=== PATIENT | male | born 1930 | race Caucasian/White ===

== ENCOUNTER 2017-02-20 12:20 | Day surgery (SDC) | payer MEDICARE, BC ==
[~2017-02-20 12:20] MED LIST: ASPI81TA52 PO; GLIP5TAB13 PO; HYDR25TA4 PO; LISI40TA4 PO; METO100T14 PO; SIMV40TA4 PO
[2017-02-20 12:51] LABS: BASOPHILS % (AUTO) 0.4 % (0-1); EOSINOPHILS # (AUTO) 0.3 X10'3 (0-0.9); EOSINOPHILS % (AUTO) 4.6 % (0-6); HEMATOCRIT 46.8 % (42.0-52.0); HEMOGLOBIN 15.9 g/dl (14.0-17.9); LYMPHOCYTES # (AUTO) 1.6 X10'3 (1.1-4.8); LYMPHOCYTES % (AUTO) 22.5 % (21-51); MEAN CORPUSCULAR HEMOGLOBIN 32.3 PG (27.0-31.0); MEAN CORPUSCULAR HGB CONC 33.9 % (33.0-36.5); MEAN CORPUSCULAR VOLUME 95.2 FL (78-98); MEAN PLATELET VOLUME 8.7 FL (7.4-10.4); MONOCYTES # (AUTO) 0.7 X10'3 (0-0.9); MONOCYTES % (AUTO) 10.3 % (2-12); NEUTROPHILS # (AUTO) 4.4 X10'3 (1.8-7.7); NEUTROPHILS % (AUTO) 62.2 % (42-75); PLATELET COUNT 202 X10'3 (140-440); RED BLOOD COUNT 4.91 X10'6 (4.70-6.10); RED CELL DISTRIBUTION WIDTH 12.6 % (11.5-14.5); WHITE BLOOD COUNT 7.1 X10'3 (4.5-11.0)
[2017-02-20 12:59] LABS: ANION GAP 7 (8-16); BLOOD UREA NITROGEN 19 MG/DL (7-18); BUN/CREATININE RATIO 15.7 (5.4-32.0); CALCIUM 9.1 MG/DL (8.5-10.1); CHLORIDE 102 MMOL/L (99-107); CREATININE 1.21 MG/DL (0.60-1.10); GLUCOSE 133 MG/DL (70-104); POTASSIUM 4.5 MMOL/L (3.5-5.1); SODIUM 140 MMOL/L (135-145); TOTAL CARBON DIOXIDE 30.8 MMOL/L (24-32); eGFR 57 ML/MIN
[2017-02-20 13:00] LABS: ALBUMIN 3.7 G/DL (3.4-5.0)
[2017-02-20 13:01] LABS: PARTIAL THROMBOPLASTIN TIME 25 SECONDS (22-32); PROTHROMBIN TIME 10.4 SECONDS (9.0-12.0)
== END 2017-02-20 23:59 | disposition home or self-care (01) ==
LOC: SSTAY O 12:20
PROVIDERS: ATTEND Internal Medicine Interventional Cardiology
DX: I35.0 Nonrheumatic aortic (valve) stenosis (principal); Z53.9 Procedure and treatment not carried out, unspecified reason; I10 Essential (primary) hypertension; E78.5 Hyperlipidemia, unspecified; I44.0 Atrioventricular block, first degree; Z79.01 Long term (current) use of anticoagulants
CPT/HCPCS: 36415; 80048; 85025; 85610; 85730

== ENCOUNTER 2017-02-22 12:07 | Emergency (ER) | payer MEDICARE, BC ==
[~2017-02-22] VITALS: Ht 177.8 cm; Wt 113.0 kg
[2017-02-22] MEDS ORDERED: bacitracin 15gm ointment TP ONE (12:25)
[2017-02-22] MEDS ORDERED: ceFAZolin 1gm IM kit IM ONE (12:25)
[2017-02-22] MEDS ORDERED: LIDOcaine 1% 30ml vial IJ ONE (12:25)
[2017-02-22] MEDS ORDERED: CEPH250T PO (15:18)
[2017-02-22 19:37] VITALS: BP 168/82
== END 2017-02-22 19:39 | disposition home or self-care (01) ==
LOC: ER 12:08
DX: S61.411A Laceration without foreign body of right hand, initial encounter (principal); I10 Essential (primary) hypertension; E78.00 Pure hypercholesterolemia, unspecified; Z79.82 Long term (current) use of aspirin; W31.2XXA Contact with powered woodworking and forming machines, initial encounter; Y93.89 Activity, other specified; Y92.89 Other specified places as the place of occurrence of the external cause; Y99.8 Other external cause status
CPT/HCPCS: 12002; 73130; 99284; A6255; A6449; J0690; J3490; 29125

== ENCOUNTER 2017-02-26 10:00 | Outpatient (CLI) | payer MEDICARE, BC ==
[~2017-02-26 10:00] MED LIST changes: +CEPH250T PO
[2017-02-26] MEDS ORDERED: LIDOcaine 2% 5ml jelly ONE (10:32)
[2017-02-26] MEDS ORDERED: METF500T PO (10:38)
[2017-02-26] MEDS ORDERED: mupirocin 2% ointment 22GM ONE (11:17)
== END 2017-02-26 11:44 | disposition home or self-care (01) ==
LOC: WOUND CARE 10:00
PROVIDERS: ATTEND Surgery
DX: L98.491 Non-pressure chronic ulcer of skin of other sites limited to breakdown of skin (principal); I10 Essential (primary) hypertension; E78.00 Pure hypercholesterolemia, unspecified; Z79.82 Long term (current) use of aspirin
CPT/HCPCS: 36416; 82948; 99215; A6021; A6206; A6222

== ENCOUNTER 2017-03-03 12:03 | Day surgery (SDC) | payer MEDICARE, BC ==
[2017-03-03] VITALS (9 sets, daily range): BP systolic 113–139; BP diastolic 61–77
[~2017-03-03] VITALS: Ht 177.8 cm; Wt 109.8 kg
[~2017-03-03 12:03] MED LIST changes: -GLIP5TAB13 PO; +METF500T PO
[2017-03-03] MEDS ORDERED: diphenhydrAMINE 25mg capsule PO PRN (13:00)
[2017-03-03] MEDS ORDERED: normal saline 1000ml 1,000 ML IV SCH ×2 (13:00→15:35)
[2017-03-03] MEDS ORDERED: LORazepam 0.5 MG tablet PO PRN (13:00)
[2017-03-03] MEDS ORDERED: CEPH250C PO (13:53)
[2017-03-03] MEDS ORDERED: fentaNYL/PF 50MCG/1 ML 2ML syringe ONE (14:09)
[2017-03-03] MEDS ORDERED: LIDOcaine 1%/PF (10mg/ml) 5ml vial ONE (14:09)
[2017-03-03] MEDS ORDERED: midazolam 2 mg/2 ml injection ONE (14:09)
[2017-03-03] MEDS ORDERED: iohexol 350MG/ML 100ml bottle IV ONE (14:09)
[2017-03-03] MEDS ORDERED: FLU VACC QS2017-18 36MOS UP/PF 60 MCG/0.5 ML SYRINGE IMVAC ONE (14:35)
[2017-03-03] MEDS ORDERED: pneumococcal 23-VAL P-sac vacc 25 mcg/0.5ml vial IMVAC ONE (14:35)
[2017-03-03] MEDS ORDERED: OXAZEpam 15mg capsule PO PRN (15:35)
[2017-03-03] MEDS ORDERED: proCHLORperazine 10 MG/2 ml inj IV PRN (15:35)
[2017-03-03] MEDS ORDERED: ondansetron/PF 4mg/2ml inj IV PRN (15:35)
[2017-03-03] MEDS ORDERED: HYDROcodone/acetaminophen 10/325mg tab PO PRN (15:35)
[2017-03-03] MEDS ORDERED: HYDROcodone/acetaminophen 5mg/325mg tablet PO PRN (15:35)
== END 2017-03-03 18:15 | disposition home or self-care (01) ==
LOC: SSTAY O 12:03
PROVIDERS: ATTEND Internal Medicine Interventional Cardiology
DX: I25.10 Atherosclerotic heart disease of native coronary artery without angina pectoris (principal); I35.0 Nonrheumatic aortic (valve) stenosis; I10 Essential (primary) hypertension; E11.9 Type 2 diabetes mellitus without complications; Z79.82 Long term (current) use of aspirin; Z79.899 Other long term (current) drug therapy
CPT/HCPCS: 93005; 93456; A6257; C1760; C1769; J1644; J2001; J2250; J3010; J7030; Q2037; Q9967; 99152; 99153; A4620

== ENCOUNTER 2017-03-05 10:12 | Day surgery (SDC) | payer MEDICARE, BC ==
[~2017-03-05 10:12] MED LIST changes: +CEPH250C PO; -CEPH250T PO
[2017-03-05] MEDS ORDERED: LIDOcaine 2% 5ml jelly ONE ×2 (11:52→12:06)
[2017-03-05] MEDS ORDERED: mupirocin 2% ointment 22GM ONE (12:37)
== END 2017-03-05 13:07 | disposition home or self-care (01) ==
LOC: WOUND CARE 10:12
PROVIDERS: ATTEND Surgery
DX: S61.401D Unspecified open wound of right hand, subsequent encounter (principal); I25.10 Atherosclerotic heart disease of native coronary artery without angina pectoris; I10 Essential (primary) hypertension; E78.00 Pure hypercholesterolemia, unspecified; X58.XXXD Exposure to other specified factors, subsequent encounter
CPT/HCPCS: 11042; A6209; A6222

== ENCOUNTER 2017-03-12 09:42 | Day surgery (SDC) | payer MEDICARE, BC ==
[2017-03-12] MEDS ORDERED: LIDOcaine 2% 5ml jelly ONE (10:24)
== END 2017-03-12 11:10 | disposition home or self-care (01) ==
LOC: WOUND CARE 09:42
PROVIDERS: ATTEND Surgery
DX: E11.622 Type 2 diabetes mellitus with other skin ulcer (principal); L98.491 Non-pressure chronic ulcer of skin of other sites limited to breakdown of skin; I25.10 Atherosclerotic heart disease of native coronary artery without angina pectoris; I10 Essential (primary) hypertension; E78.00 Pure hypercholesterolemia, unspecified; Z79.82 Long term (current) use of aspirin; Z79.899 Other long term (current) drug therapy
CPT/HCPCS: 15275; A6209; A6222; Q4132

== ENCOUNTER 2017-03-19 09:41 | Day surgery (SDC) | payer MEDICARE, BC ==
[2017-03-19] MEDS ORDERED: LIDOcaine 2% 5ml jelly ONE (10:16)
== END 2017-03-19 11:35 | disposition home or self-care (01) ==
LOC: WOUND CARE 09:41
PROVIDERS: ATTEND Surgery
DX: E11.622 Type 2 diabetes mellitus with other skin ulcer (principal); L98.491 Non-pressure chronic ulcer of skin of other sites limited to breakdown of skin; I25.10 Atherosclerotic heart disease of native coronary artery without angina pectoris; I10 Essential (primary) hypertension; E78.00 Pure hypercholesterolemia, unspecified; Z79.82 Long term (current) use of aspirin; Z79.899 Other long term (current) drug therapy
CPT/HCPCS: 15275; A6021; A6206; A6209; A6222; Q4132

== ENCOUNTER 2017-03-26 09:45 | Day surgery (SDC) | payer MEDICARE, BC ==
[2017-03-26] MEDS ORDERED: LIDOcaine 2% 5ml jelly ONE (10:08)
== END 2017-03-26 11:23 | disposition home or self-care (01) ==
LOC: WOUND CARE 09:45
PROVIDERS: ATTEND Surgery
DX: E11.622 Type 2 diabetes mellitus with other skin ulcer (principal); L98.491 Non-pressure chronic ulcer of skin of other sites limited to breakdown of skin; I25.10 Atherosclerotic heart disease of native coronary artery without angina pectoris; I10 Essential (primary) hypertension; E78.00 Pure hypercholesterolemia, unspecified; Z79.82 Long term (current) use of aspirin; Z79.899 Other long term (current) drug therapy
CPT/HCPCS: 97597; A6021; A6209; A6222; A6446

== ENCOUNTER 2017-04-02 11:18 | Day surgery (SDC) | payer MEDICARE, BC ==
[2017-04-02] MEDS ORDERED: LIDOcaine 2% 5ml jelly ONE (12:05)
== END 2017-04-02 12:45 | disposition home or self-care (01) ==
LOC: WOUND CARE 11:18
PROVIDERS: ATTEND Surgery
DX: E11.622 Type 2 diabetes mellitus with other skin ulcer (principal); L98.491 Non-pressure chronic ulcer of skin of other sites limited to breakdown of skin; I25.10 Atherosclerotic heart disease of native coronary artery without angina pectoris; I10 Essential (primary) hypertension; E78.00 Pure hypercholesterolemia, unspecified; Z79.82 Long term (current) use of aspirin; Z79.899 Other long term (current) drug therapy
CPT/HCPCS: 17250; 97597; A6021; A6222

== ENCOUNTER 2017-04-09 09:53 | Outpatient (CLI) | payer MEDICARE, BC | END 2017-04-09 10:48 | disposition home or self-care (01) | LOC: WOUND CARE 09:53 → EDSTATUS 10:00 → WOUND CARE 10:48 | PROVIDERS: ATTEND Surgery | DX: E11.622 Type 2 diabetes mellitus with other skin ulcer (principal); L98.491 Non-pressure chronic ulcer of skin of other sites limited to breakdown of skin; I25.10 Atherosclerotic heart disease of native coronary artery without angina pectoris; I10 Essential (primary) hypertension; E78.00 Pure hypercholesterolemia, unspecified; Z79.82 Long term (current) use of aspirin; Z79.899 Other long term (current) drug therapy; Z79.01 Long term (current) use of anticoagulants | CPT/HCPCS: 99215; A6222 ==

== ENCOUNTER 2017-04-16 09:50 | Day surgery (SDC) | payer MEDICARE, BC ==
[2017-04-16] MEDS ORDERED: LIDOcaine 2% 5ml jelly ONE (10:37)
== END 2017-04-16 11:15 | disposition home or self-care (01) ==
LOC: WOUND CARE 09:50
PROVIDERS: ATTEND Surgery
DX: E11.622 Type 2 diabetes mellitus with other skin ulcer (principal); L98.491 Non-pressure chronic ulcer of skin of other sites limited to breakdown of skin; I25.10 Atherosclerotic heart disease of native coronary artery without angina pectoris; I10 Essential (primary) hypertension; E78.00 Pure hypercholesterolemia, unspecified; Z79.82 Long term (current) use of aspirin; Z79.899 Other long term (current) drug therapy; Z79.01 Long term (current) use of anticoagulants
CPT/HCPCS: 15275; A6209; A6222; Q4131; A6250

== ENCOUNTER 2017-04-24 09:09 | Outpatient (CLI) | payer MEDICARE, BC | END 2017-04-24 10:10 | disposition home or self-care (01) | LOC: WOUND CARE 09:09 → EDSTATUS 09:30 → WOUND CARE 10:10 | PROVIDERS: ATTEND Surgery | DX: E11.622 Type 2 diabetes mellitus with other skin ulcer (principal); L98.491 Non-pressure chronic ulcer of skin of other sites limited to breakdown of skin; I25.10 Atherosclerotic heart disease of native coronary artery without angina pectoris; I10 Essential (primary) hypertension; E78.00 Pure hypercholesterolemia, unspecified; Z79.82 Long term (current) use of aspirin; Z79.899 Other long term (current) drug therapy; Z79.01 Long term (current) use of anticoagulants | CPT/HCPCS: 99211; A6212 ==

== ENCOUNTER 2017-04-30 09:12 | Outpatient (CLI) | payer MEDICARE, BC | END 2017-04-30 10:24 | disposition home or self-care (01) | LOC: WOUND CARE 09:12 → EDSTATUS 09:30 → WOUND CARE 10:24 | PROVIDERS: ATTEND Surgery | DX: E11.622 Type 2 diabetes mellitus with other skin ulcer (principal); L98.491 Non-pressure chronic ulcer of skin of other sites limited to breakdown of skin; S61.200D Unspecified open wound of right index finger without damage to nail, subsequent encounter; I25.10 Atherosclerotic heart disease of native coronary artery without angina pectoris; I10 Essential (primary) hypertension; E78.00 Pure hypercholesterolemia, unspecified; Z79.82 Long term (current) use of aspirin; Z79.899 Other long term (current) drug therapy; Z79.01 Long term (current) use of anticoagulants; X58.XXXD Exposure to other specified factors, subsequent encounter | CPT/HCPCS: 99214 ==

== ENCOUNTER 2017-05-14 09:21 | Outpatient (CLI) | payer MEDICARE, BC | END 2017-05-14 10:50 | disposition home or self-care (01) | LOC: WOUND CARE 09:21 → EDSTATUS 09:30 → WOUND CARE 10:50 | PROVIDERS: ATTEND Surgery | DX: E11.622 Type 2 diabetes mellitus with other skin ulcer (principal); L98.491 Non-pressure chronic ulcer of skin of other sites limited to breakdown of skin; I25.10 Atherosclerotic heart disease of native coronary artery without angina pectoris; I10 Essential (primary) hypertension; E78.00 Pure hypercholesterolemia, unspecified; Z79.82 Long term (current) use of aspirin; Z79.899 Other long term (current) drug therapy; Z79.01 Long term (current) use of anticoagulants | CPT/HCPCS: 99214 ==

== ENCOUNTER 2017-06-18 12:30 | Inpatient (IN) | payer MEDICARE, BC ==
[~2017-06-18] VITALS: Ht 177.8 cm; Wt 118.0 kg
[~2017-06-18 12:30] MED LIST changes: -CEPH250C PO
[2017-06-18 13:08] LABS: BASOPHILS # (AUTO) 0.1 X10'3 (0-0.2); BASOPHILS % (AUTO) 1.1 % (0-1); EOSINOPHILS # (AUTO) 0.4 X10'3 (0-0.9); EOSINOPHILS % (AUTO) 5.8 % (0-6); LYMPHOCYTES # (AUTO) 1.4 X10'3 (1.1-4.8); LYMPHOCYTES % (AUTO) 19.9 % (21-51); MEAN CORPUSCULAR HEMOGLOBIN 32.5 PG (27.0-31.0); MEAN CORPUSCULAR HGB CONC 34.9 % (33.0-36.5); MEAN PLATELET VOLUME 8.8 FL (7.4-10.4); MONOCYTES # (AUTO) 0.6 X10'3 (0-0.9); MONOCYTES % (AUTO) 9.1 % (2-12); NEUTROPHILS # (AUTO) 4.5 X10'3 (1.8-7.7); NEUTROPHILS % (AUTO) 64.1 % (42-75); PRE OP HEMATOCRIT 44.2 % (42.0-52.0); PRE OP HEMOGLOBIN 15.4 g/dL (14.0-17.9); PRE OP PLATELET COUNT 210 X10'3 (140-440); RED BLOOD COUNT 4.75 X10'6 (4.70-6.10); RED CELL DISTRIBUTION WIDTH 13.5 % (11.5-14.5)
[2017-06-18 13:12] LABS: CLARITY,URINE CLEAR (Clear); COLOR,URINE YELLOW (Yellow); GLUCOSE, URINE NEGATIVE (Neg); KETONES,URINE NEGATIVE (Neg); LEUKOCYTE ESTERASE ,URINE NEGATIVE (Neg); NITRITES, URINE NEGATIVE (Neg); OCCULT BLOOD,URINE NEGATIVE (Neg); PROTEIN,URINE NEGATIVE (Neg)
[2017-06-18 13:21] LABS: UA COLLECTION TYPE CLN CATCH MIDSTREAM
[2017-06-18 13:29] LABS: ALBUMIN 3.6 G/DL (3.4-5.0); ALKALINE PHOSPHATASE 57 IU/L (46-116); BLOOD UREA NITROGEN 20 MG/DL (7-18); BUN/CREATININE RATIO 16.1 (5.4-32.0); CALCIUM 9.1 MG/DL (8.5-10.1); CHLORIDE 104 MMOL/L (99-107); CREATININE 1.24 MG/DL (0.60-1.10); PRE OP ALT 30 U/L (30-65); PRE OP ANION GAP 7 (8-16); PRE OP BILIRUB, TOTAL 0.5 MG/DL (0.0-1.0); PRE OP SODIUM 140 MMOL/L (135-145); TOTAL CARBON DIOXIDE 28.9 MMOL/L (24-32); TOTAL PROTEIN 7.2 G/DL (6.4-8.2); eGFR 55 ML/MIN
[2017-06-18 13:30] LABS: PRE OP AST 24 U/L (10-37); PRE OP GLUCOSE 144 MG/DL (70-104); PRE OP POTASSIUM 4.6 MMOL/L (3.4-5.1)
[2017-06-18 14:10] LABS: ABG BASE EXCESS 3.9 mmol/L (-2.0-3.0); ABG HCO3 27.7 mmol/L (22.0-26.0); ABG PCO2 (T) 38.6 mmHg (35.0-48.0); ABG PH (T) 7.473 (7.350-7.450); ABG PO2 (T) 86.9 mmHg (83-108); ALLEN'S TEST Positive; FMetHb 0.1 % (0.3-1.12); FO2Hb 95.9 % (94-100); TOTAL HEMOGLOBIN 15.5 G/dl (14.0-18.0)
[2017-06-22] VITALS (19 sets, daily range): BP systolic 98–180; BP diastolic 42–88
[2017-06-22] MEDS ORDERED: ringers solution, lacted 1,000 ML IV SCH (05:00)
[2017-06-22] MEDS ORDERED: dextrose 50%-water 50ml dispensing syringe IV PRN ×2 (05:30→11:35)
[2017-06-22] MEDS ORDERED: famotidine 20mg tablet PO ONE (05:30)
[2017-06-22] MEDS ORDERED: LORazepam 2 mg/ml vial IV ONE (05:30)
[2017-06-22] MEDS ORDERED: ceFAZolin inj. 2,000 MG in normal saline 100ml IV soln 100 ML IV ONE (05:30)
[2017-06-22] MEDS ORDERED: metoprolol tartrate 12.5mg (1/2 tablet) PO ONE (05:30)
[2017-06-22] MEDS: insulin regular, human 100 UNITS in normal saline 100ml IV soln 99 ML IV SCH ×18 (05:30→23:15)
[2017-06-22] MEDS ORDERED: DOCUMENT DATE & TIME OF BETA-BLOCKER PO ONE (05:30)
[2017-06-22] MEDS ORDERED: vancomycin inj 1,500 MG in normal saline 300ml IV soln IV ONE (05:30)
[2017-06-22] MEDS ORDERED: LIDOcaine 1% (10mg/ml) 2ml vial ONE (05:56)
[2017-06-22] MEDS: mupirocin 2% ointment 22GM TP SCH ×2 (06:16→08:00)
[2017-06-22] MEDS ORDERED: heparin 10,000 units/1 ML INJ IR ONE (06:30)
[2017-06-22] MEDS ORDERED: papaverine 30 mg/ml 2ml inj. IA ONE (06:30)
[2017-06-22] MEDS ORDERED: MIDAZolam 1mg/ml 10ml vial ONE (07:07)
[2017-06-22] MEDS ORDERED: LIDOcaine 2% (20mg/ml) 5ml vial ONE (07:08)
[2017-06-22] MEDS ORDERED: propofol inj 20 ML IV ONE (07:08)
[2017-06-22] MEDS ORDERED: pancuronium br 1mg/ml inj IV ONE (07:08)
[2017-06-22] MEDS ORDERED: SUFENTANIL CITRATE 50 MCG/ML 2ml ampule IV ONE (07:08)
[2017-06-22] MEDS ORDERED: sevoflurane 250ml liquid IH ONE (07:15)
[2017-06-22] MEDS ORDERED: aminocaproic acid 250 MG/1 ML inj. ONE (07:15)
[2017-06-22] MEDS ORDERED: protamine sulf. 10mg/ml inj. IV ONE (07:15)
[2017-06-22] MEDS ORDERED: albumin (Human) 5% 250ml 250 ML IV ONE (07:21)
[2017-06-22] MEDS ORDERED: BRIM5DRO16 EACHEYE (07:46)
[2017-06-22 08:16] LABS: ABG BASE EXCESS -1.7 mmol/L (-2.0-3.0); ABG HCO3 23.9 mmol/L (22.0-26.0); ABG OXYGEN SATURATION 99.3 % (95-98); ABG PCO2 43.5 mmHg (35.0-45.0); ABG PH 7.357 (7.350-7.450); ABG PO2 243.4 mmHg (60.0-100.0); CL (ABG) 105 mmol/L (99-107); FCOHb 0.5 % (0.5-1.5); FMetHb 0.2 % (0.3-1.12); FO2Hb 98.6 % (94-100); GLUCOSE (ABG) 145 mg/dl (70-105); K (ABG) 4.1 mmol/L (3.3-5.1); NA (ABG) 133 mmol/L (135-145)
[2017-06-22 08:40] LABS: ACT @ 1.70 U 295 SEC (193-297); ACT @ 2.84 U 427 SEC (260-420); BASELINE ACT 148 SEC (101-148)
[2017-06-22 09:16] LABS: ABG HCO3 25.6 mmol/L (22.0-26.0); ABG OXYGEN SATURATION 99.4 % (95-98); ABG PCO2 40.5 mmHg (35.0-45.0); ABG PH 7.418 (7.350-7.450); ABG PO2 272.7 mmHg (60.0-100.0); CL (ABG) 103 mmol/L (99-107); FCOHb 0.4 % (0.5-1.5); FMetHb 0.3 % (0.3-1.12); FO2Hb 98.7 % (94-100); GLUCOSE (ABG) 121 mg/dl (70-105); K (ABG) 5.1 mmol/L (3.3-5.1); NA (ABG) 132 mmol/L (135-145); TOTAL HEMOGLOBIN 10.9 G/dl (14.0-18.0)
[2017-06-22 09:35] LABS: ABG BASE EXCESS VENOUS -0.8 mmol/L; ABG HCO3 VENOUS 24.7 mmol/L; ABG PCO2 VENOUS 44.2 mmHg; ABG PO2 VENOUS 52.7 mmHg; CL (ABG) 103 mmol/L (99-107); FCOHb VENOUS 0.8 %; FHHb VENOUS 13.6 %; FMetHb VENOUS 0.3 %; FO2Hb VENOUS 85.3 %; GLUCOSE (ABG) 120 mg/dl (70-105); IONIZED CA (ABG) 1.06 mmol/L (1.03-1.32); NA (ABG) 133 mmol/L (135-145); TOTAL HEMOGLOBIN 11.4 G/dl (14.0-18.0)
[2017-06-22 10:15] LABS: ABG HCO3 27.4 mmol/L (22.0-26.0); ABG OXYGEN SATURATION 98.9 % (95-98); ABG PCO2 41.6 mmHg (35.0-45.0); ABG PH 7.437 (7.350-7.450); ABG PO2 327.8 mmHg (60.0-100.0); CL (ABG) 103 mmol/L (99-107); FCOHb 0.3 % (0.5-1.5); FMetHb 0.6 % (0.3-1.12); GLUCOSE (ABG) 127 mg/dl (70-105); IONIZED CA (ABG) 1.21 mmol/L (1.03-1.32); K (ABG) 4.3 mmol/L (3.3-5.1); NA (ABG) 132 mmol/L (135-145); TOTAL HEMOGLOBIN 10.5 G/dl (14.0-18.0)
[2017-06-22 11:11] LABS: ABG BASE EXCESS VENOUS 0.3 mmol/L; ABG HCO3 VENOUS 26.3 mmol/L; ABG PO2 VENOUS 42.3 mmHg; CL (ABG) 105 mmol/L (99-107); FCOHb VENOUS 0.7 %; FHHb VENOUS 22.3 %; FMetHb VENOUS 0.4 %; FO2Hb VENOUS 76.6 %; GLUCOSE (ABG) 123 mg/dl (70-105); IONIZED CA (ABG) 1.17 mmol/L (1.03-1.32); K (ABG) 4.3 mmol/L (3.3-5.1); NA (ABG) 134 mmol/L (135-145); TOTAL HEMOGLOBIN 13.1 G/dl (14.0-18.0)
[2017-06-22 11:26] LABS: ACTIVATED CLOTTING TIME 133 SEC (101-148)
[2017-06-22] MEDS ORDERED: nitroGLYCERIN-Tridil 50MG/D5W 250 ML IV PRN (11:31)
[2017-06-22] MEDS: sodium chloride 0.45% 1,000 ML IV SCH (11:31)
[2017-06-22] MEDS ORDERED: DOPamine 400mg/D5W 250ml 250 ML IV PRN (11:31)
[2017-06-22] MEDS ORDERED: niCARDipine/sod cl 20mg/200ml 200 ML IV PRN (11:31)
[2017-06-22] MEDS ORDERED: potassium Cl 20mEq/100mL bag 100 ML IV PRN ×2 (11:35)
[2017-06-22] MEDS ORDERED: insulin regular, human inj. 100 UNITS in normal saline 100ml IV soln 100 ML IV SCH ×2 (11:35)
[2017-06-22] MEDS ORDERED: acetaminophen 325mg tablet PO PRN (11:35)
[2017-06-22] MEDS ORDERED: magnesium hydroxide 30ml (MOM) UD suspension PO PRN (11:35)
[2017-06-22] MEDS ORDERED: magnesium 2GM in 50ml NS 50 ML IV PRN (11:35)
[2017-06-22] MEDS ORDERED: morphine 4 MG/ML inj SYRINge IV PRN (11:35)
[2017-06-22] MEDS ORDERED: normal saline 250ml IV soln 250 ML IV PRN (11:35)
[2017-06-22] MEDS ORDERED: Neutra Phos packet PO PRN (11:35)
[2017-06-22] MEDS ORDERED: sodium phosphate inj. 30 MMOL in dextrose 5%-water 250 ML IV PRN (11:35)
[2017-06-22] MEDS ORDERED: HYDROcodone/acetaminophen 10/325mg tab PO PRN (11:35)
[2017-06-22] MEDS ORDERED: sodium phosphate inj. 15 MMOL in dextrose 5%-water 150 ML IV PRN (11:35)
[2017-06-22] MEDS ORDERED: ondansetron/PF 4mg/2ml inj IV PRN (11:35)
[2017-06-22] MEDS ORDERED: metoclopramide 5 mg/ml inj IV PRN (11:35)
[2017-06-22] MEDS ORDERED: magnesium 4gm in 100ml NS 100 ML IV PRN (11:35)
[2017-06-22 12:14] LABS: BASOPHILS % (AUTO) 0.2 % (0-1); EOSINOPHILS # (AUTO) 0.1 X10'3 (0-0.9); EOSINOPHILS % (AUTO) 1.6 % (0-6); HEMATOCRIT 34.7 % (42.0-52.0); HEMOGLOBIN 11.9 g/dl (14.0-17.9); LYMPHOCYTES # (AUTO) 0.7 X10'3 (1.1-4.8); LYMPHOCYTES % (AUTO) 9.9 % (21-51); MEAN CORPUSCULAR HEMOGLOBIN 32.1 PG (27.0-31.0); MEAN CORPUSCULAR HGB CONC 34.3 % (33.0-36.5); MEAN CORPUSCULAR VOLUME 93.7 FL (78-98); MEAN PLATELET VOLUME 8.7 FL (7.4-10.4); MONOCYTES # (AUTO) 0.3 X10'3 (0-0.9); MONOCYTES % (AUTO) 4.5 % (2-12); NEUTROPHILS # (AUTO) 6.4 X10'3 (1.8-7.7); NEUTROPHILS % (AUTO) 83.8 % (42-75); PLATELET COUNT 112 X10'3 (140-440); RED BLOOD COUNT 3.71 X10'6 (4.70-6.10); RED CELL DISTRIBUTION WIDTH 13.4 % (11.5-14.5); WHITE BLOOD COUNT 7.6 X10'3 (4.5-11.0)
[2017-06-22 12:16] LABS: ABG BASE EXCESS -1.3 mmol/L (-2.0-3.0); ABG HCO3 24.7 mmol/L (22.0-26.0); ABG OXYGEN SATURATION 96.1 % (95-98); ABG PCO2 (T) 43.8 mmHg (35.0-48.0); ABG PH (T) 7.363 (7.350-7.450); ABG PO2 (T) 82.6 mmHg (83-108); FCOHb 0.3 % (0.5-1.5); FLOW 35 L/min; FMetHb 0.1 % (0.3-1.12); FO2Hb 95.7 % (94-100); MINUTE VOLUME 8 L/min; PATIENT TEMPERATURE 35.9; PEEP 5 cm H2O; RESPIRATORY RATE 10 b/min; RESPIRATORY RATE (OBSERVED) 10 b/min; TIDAL VOLUME 700 mL; TOTAL HEMOGLOBIN 12.8 G/dl (14.0-18.0)
[2017-06-22 12:31] LABS: INR 1.2 INR; PARTIAL THROMBOPLASTIN TIME 39 SECONDS (22-32); PROTHROMBIN TIME 12.4 SECONDS (9.0-12.0)
[2017-06-22 12:35] LABS: ALANINE AMINOTRANSFERASE 19 U/L (12-78); ALBUMIN 3.1 G/DL (3.4-5.0); ALBUMIN/GLOBULIN RATIO 1.7 (1.1-1.5); ALKALINE PHOSPHATASE 28 IU/L (46-116); ANION GAP 10 (8-16); ASPARTATE AMINO TRANSFERASE 27 U/L (10-37); BILIRUBIN,TOTAL 0.5 MG/DL (0.1-1.0); BLOOD UREA NITROGEN 20 MG/DL (7-18); BUN/CREATININE RATIO 17.9 (5.4-32.0); CHLORIDE 107 MMOL/L (99-107); CREATININE 1.12 MG/DL (0.60-1.10); GLUCOSE 113 MG/DL (70-104); MAGNESIUM 3.1 MG/DL (1.5-2.4); POTASSIUM 4.4 MMOL/L (3.5-5.1); SODIUM 142 MMOL/L (135-145); TOTAL PROTEIN 4.9 G/DL (6.4-8.2); eGFR 62 ML/MIN
[2017-06-22] MEDS: albumin (Human) 5% 250ml 250 ML IV PRN ×3 (12:48→16:57)
[2017-06-22] MEDS: insulin Lispro (HumaLOG) vial - multi-dose SQ SCH ×2 (13:00→18:00)
[2017-06-22] MEDS: morphine 4 MG/ML inj SYRINge IV PRN (13:22)
[2017-06-22] MEDS: ceFAZolin inj. 2,000 MG in normal saline 100ml IV soln 100 ML IV SCH ×2 (15:52→23:57)
[2017-06-22] MEDS ORDERED: cefazolin/dext.iso 2gm/50ml 50 ML IV SCH (16:00)
[2017-06-22 16:30] LABS: ABG BASE EXCESS -4.9 mmol/L (-2.0-3.0); ABG HCO3 20.9 mmol/L (22.0-26.0); ABG PCO2 (T) 41.2 mmHg (35.0-48.0); ABG PH (T) 7.322 (7.350-7.450); ABG PO2 (T) 97.5 mmHg (83-108); FCOHb 0.3 % (0.5-1.5); FMetHb 0.3 % (0.3-1.12); FO2Hb 96.4 % (94-100); MINUTE VOLUME 10 L/min; PATIENT TEMPERATURE 36.7; PEEP 5 cm H2O; TIDAL VOLUME 703 mL; TOTAL HEMOGLOBIN 11.8 G/dl (14.0-18.0)
[2017-06-22] MEDS ORDERED: NORepinephrine 8mg/ 250ml NS 250 ML IV ONE (16:42)
[2017-06-22 17:49] LABS: BASOPHILS % (AUTO) 0 % (0-1); EOSINOPHILS # (AUTO) 0.2 X10'3 (0-0.9); EOSINOPHILS % (AUTO) 1.7 % (0-6); HEMATOCRIT 31.6 % (42.0-52.0); HEMOGLOBIN 10.7 g/dl (14.0-17.9); LYMPHOCYTES # (AUTO) 0.5 X10'3 (1.1-4.8); LYMPHOCYTES % (AUTO) 4.4 % (21-51); MEAN CORPUSCULAR HGB CONC 33.9 % (33.0-36.5); MEAN CORPUSCULAR VOLUME 94.4 FL (78-98); MEAN PLATELET VOLUME 8.6 FL (7.4-10.4); MONOCYTES # (AUTO) 0.4 X10'3 (0-0.9); MONOCYTES % (AUTO) 2.8 % (2-12); NEUTROPHILS # (AUTO) 11.5 X10'3 (1.8-7.7); NEUTROPHILS % (AUTO) 91.1 % (42-75); PLATELET COUNT 130 X10'3 (140-440); RED BLOOD COUNT 3.35 X10'6 (4.70-6.10); RED CELL DISTRIBUTION WIDTH 13.6 % (11.5-14.5); WHITE BLOOD COUNT 12.6 X10'3 (4.5-11.0)
[2017-06-22 18:03] LABS: ALANINE AMINOTRANSFERASE 16 U/L (12-78); ALBUMIN 3.8 G/DL (3.4-5.0); ALBUMIN/GLOBULIN RATIO 2.4 (1.1-1.5); ALKALINE PHOSPHATASE 26 IU/L (46-116); ANION GAP 15 (8-16); ASPARTATE AMINO TRANSFERASE 30 U/L (10-37); BILIRUBIN,TOTAL 0.6 MG/DL (0.1-1.0); BLOOD UREA NITROGEN 21 MG/DL (7-18); BUN/CREATININE RATIO 15.6 (5.4-32.0); CALCIUM 7.7 MG/DL (8.5-10.1); CHLORIDE 105 MMOL/L (99-107); CREATININE 1.35 MG/DL (0.60-1.10); GLUCOSE 190 MG/DL (70-104); SODIUM 141 MMOL/L (135-145); TOTAL CARBON DIOXIDE 21.3 MMOL/L (24-32); TOTAL PROTEIN 5.4 G/DL (6.4-8.2); eGFR 50 ML/MIN
[2017-06-22] MEDS: potassium Cl 20mEq/100mL bag 100 ML IV PRN (18:44)
[2017-06-22 18:52] LABS: MAGNESIUM 2.6 MG/DL (1.5-2.4); PHOSPHORUS 3.7 MG/DL (2.3-4.5)
[2017-06-22] MEDS: docusate sod 100mg capsule PO SCH (20:00)
[2017-06-22] MEDS ORDERED: mupirocin 2% ointment 22GM NS SCH (20:00)
[2017-06-22] MEDS: mupirocin 2% nasal ointment 1gm UD NS SCH (20:42)
[2017-06-22] MEDS: vancomycin/NS 1 GM ADD-VANTAGE 250 ML IV SCH (20:42)
[2017-06-22] MEDS: brimonidine 0.2% 5 ML ophthalmic drops EACHEYE SCH (22:07)
[2017-06-23] VITALS (23 sets, daily range): BP systolic 107–140; BP diastolic 38–65
[2017-06-23] MEDS: insulin regular, human 100 UNITS in normal saline 100ml IV soln 99 ML IV SCH ×2 (01:13)
[2017-06-23 04:22] LABS: BASOPHILS % (AUTO) 0 % (0-1); EOSINOPHILS # (AUTO) 0.2 X10'3 (0-0.9); EOSINOPHILS % (AUTO) 1.1 % (0-6); HEMATOCRIT 29.5 % (42.0-52.0); HEMOGLOBIN 10.1 g/dl (14.0-17.9); LYMPHOCYTES # (AUTO) 0.7 X10'3 (1.1-4.8); LYMPHOCYTES % (AUTO) 4.5 % (21-51); MEAN CORPUSCULAR HEMOGLOBIN 32.2 PG (27.0-31.0); MEAN CORPUSCULAR HGB CONC 34.3 % (33.0-36.5); MEAN CORPUSCULAR VOLUME 93.9 FL (78-98); MEAN PLATELET VOLUME 9.1 FL (7.4-10.4); MONOCYTES # (AUTO) 0.9 X10'3 (0-0.9); MONOCYTES % (AUTO) 5.8 % (2-12); NEUTROPHILS # (AUTO) 14.1 X10'3 (1.8-7.7); NEUTROPHILS % (AUTO) 88.6 % (42-75); PLATELET COUNT 126 X10'3 (140-440); RED BLOOD COUNT 3.14 X10'6 (4.70-6.10); RED CELL DISTRIBUTION WIDTH 13.9 % (11.5-14.5); WHITE BLOOD COUNT 15.9 X10'3 (4.5-11.0)
[2017-06-23 04:33] LABS: INR 1.1 INR; PARTIAL THROMBOPLASTIN TIME 32 SECONDS (22-32); PROTHROMBIN TIME 11.3 SECONDS (9.0-12.0)
[2017-06-23 04:38] LABS: ALANINE AMINOTRANSFERASE 17 U/L (12-78); ALBUMIN 3.3 G/DL (3.4-5.0); ALBUMIN/GLOBULIN RATIO 1.9 (1.1-1.5); ALKALINE PHOSPHATASE 26 IU/L (46-116); ANION GAP 8 (8-16); ASPARTATE AMINO TRANSFERASE 46 U/L (10-37); BILIRUBIN,TOTAL 0.4 MG/DL (0.1-1.0); BLOOD UREA NITROGEN 23 MG/DL (7-18); BUN/CREATININE RATIO 21.1 (5.4-32.0); CALCIUM 7.6 MG/DL (8.5-10.1); CHLORIDE 107 MMOL/L (99-107); CREATININE 1.09 MG/DL (0.60-1.10); GLUCOSE 147 MG/DL (70-104); MAGNESIUM 2.4 MG/DL (1.5-2.4); PHOSPHORUS 3.3 MG/DL (2.3-4.5); POTASSIUM 4.4 MMOL/L (3.5-5.1); SODIUM 140 MMOL/L (135-145); TOTAL CARBON DIOXIDE 24.8 MMOL/L (24-32); eGFR 64 ML/MIN
[2017-06-23] MEDS: potassium Cl 20mEq/100mL bag 100 ML IV PRN (05:08)
[2017-06-23] MEDS: morphine 4 MG/ML inj SYRINge IV PRN (07:39)
[2017-06-23] MEDS: metoprolol tartrate 25mg tablet PO SCH ×2 (08:00→19:41)
[2017-06-23] MEDS ORDERED: metoprolol tartrate 12.5mg (1/2 tablet) PO SCH (08:00)
[2017-06-23] MEDS: ceFAZolin inj. 2,000 MG in normal saline 100ml IV soln 100 ML IV SCH ×2 (08:34→15:50)
[2017-06-23] MEDS: brimonidine 0.2% 5 ML ophthalmic drops EACHEYE SCH ×2 (08:35→19:40)
[2017-06-23] MEDS: pantoprazole 40mg Tablet.DR PO SCH (08:35)
[2017-06-23] MEDS: docusate sod 100mg capsule PO SCH ×2 (08:35→19:40)
[2017-06-23] MEDS: atorvastatin 10mg tablet PO SCH (08:35)
[2017-06-23] MEDS: aspirin 325mg tablet, delayed-release (Ecotrin) PO SCH (08:35)
[2017-06-23] MEDS: mupirocin 2% nasal ointment 1gm UD NS SCH ×2 (08:36→19:39)
[2017-06-23] MEDS: insulin Lispro (HumaLOG) vial - multi-dose SQ SCH ×5 (09:00→21:59)
[2017-06-23] MEDS: vancomycin/NS 1 GM ADD-VANTAGE 250 ML IV SCH ×2 (10:47→19:39)
[2017-06-23] MEDS: Protein Smoothie (high protein) 240ml (8oz) cup PO SCH ×2 (13:00→18:48)
[2017-06-23] MEDS ORDERED: glucagon, human recombinant 1mg kit SUBCUT PRN (13:20)
[2017-06-23] MEDS ORDERED: MESSAGE TO PHARMACY PO ONE (13:20)
[2017-06-23] MEDS ORDERED: dextrose ORAL solution 15 GM/59 ML bottle PO PRN ×2 (13:20)
[2017-06-23] MEDS ORDERED: dextrose 50%-water 50ml dispensing syringe IV PRN ×2 (13:20)
[2017-06-23] MEDS: insulin glargine (Lantus) pen - multi-dose SQ SCH (21:58)
[2017-06-24] VITALS (24 sets, daily range): BP systolic 80–150; BP diastolic 52–73
[2017-06-24] MEDS: ceFAZolin inj. 2,000 MG in normal saline 100ml IV soln 100 ML IV SCH (00:09)
[2017-06-24 05:44] LABS: BASOPHILS % (AUTO) 0 % (0-1); EOSINOPHILS # (AUTO) 0.1 X10'3 (0-0.9); EOSINOPHILS % (AUTO) 1.2 % (0-6); HEMOGLOBIN 9.3 g/dl (14.0-17.9); LYMPHOCYTES # (AUTO) 0.8 X10'3 (1.1-4.8); LYMPHOCYTES % (AUTO) 7.1 % (21-51); MEAN CORPUSCULAR HEMOGLOBIN 32.5 PG (27.0-31.0); MEAN CORPUSCULAR HGB CONC 34.3 % (33.0-36.5); MEAN CORPUSCULAR VOLUME 94.9 FL (78-98); MEAN PLATELET VOLUME 9.9 FL (7.4-10.4); MONOCYTES % (AUTO) 8.9 % (2-12); NEUTROPHILS # (AUTO) 9.4 X10'3 (1.8-7.7); NEUTROPHILS % (AUTO) 82.8 % (42-75); PLATELET COUNT 97 X10'3 (140-440); RED BLOOD COUNT 2.85 X10'6 (4.70-6.10); RED CELL DISTRIBUTION WIDTH 14.5 % (11.5-14.5); WHITE BLOOD COUNT 11.4 X10'3 (4.5-11.0)
[2017-06-24 06:04] LABS: ANION GAP 7 (8-16); BLOOD UREA NITROGEN 29 MG/DL (7-18); BUN/CREATININE RATIO 26.6 (5.4-32.0); CALCIUM 7.7 MG/DL (8.5-10.1); CHLORIDE 106 MMOL/L (99-107); CREATININE 1.09 MG/DL (0.60-1.10); GLUCOSE 172 MG/DL (70-104); MAGNESIUM 2.8 MG/DL (1.5-2.4); PHOSPHORUS 2.9 MG/DL (2.3-4.5); POTASSIUM 5.1 MMOL/L (3.5-5.1); SODIUM 138 MMOL/L (135-145); TOTAL CARBON DIOXIDE 25.5 MMOL/L (24-32); eGFR 64 ML/MIN
[2017-06-24] MEDS: aspirin 325mg tablet, delayed-release (Ecotrin) PO SCH (08:44)
[2017-06-24] MEDS: HYDROcodone/acetaminophen 10/325mg tab PO PRN (08:44)
[2017-06-24] MEDS: atorvastatin 10mg tablet PO SCH (08:44)
[2017-06-24] MEDS: pantoprazole 40mg Tablet.DR PO SCH (08:44)
[2017-06-24] MEDS: metoprolol tartrate 25mg tablet PO SCH ×2 (08:44→20:38)
[2017-06-24] MEDS: brimonidine 0.2% 5 ML ophthalmic drops EACHEYE SCH ×2 (08:44→20:39)
[2017-06-24] MEDS: docusate sod 100mg capsule PO SCH ×2 (08:44→20:38)
[2017-06-24] MEDS: Protein Smoothie (high protein) 240ml (8oz) cup PO SCH ×3 (08:45→18:00)
[2017-06-24] MEDS: mupirocin 2% nasal ointment 1gm UD NS SCH ×2 (08:45→20:38)
[2017-06-24] MEDS: insulin Lispro (HumaLOG) vial - multi-dose SQ SCH ×3 (09:52→20:41)
[2017-06-24] MEDS: sodium chloride 0.45% 1,000 ML IV SCH (11:31)
[2017-06-24] MEDS: insulin glargine (Lantus) pen - multi-dose SQ SCH (20:40)
[2017-06-25] VITALS (17 sets, daily range): BP systolic 84–150; BP diastolic 43–65
[2017-06-25] MEDS: insulin regular, human 100 UNITS in normal saline 100ml IV soln 99 ML IV SCH ×2 (00:10)
[2017-06-25 03:22] LABS: BASOPHILS % (AUTO) 0.1 % (0-1); EOSINOPHILS # (AUTO) 0.1 X10'3 (0-0.9); EOSINOPHILS % (AUTO) 0.5 % (0-6); HEMOGLOBIN 9.8 g/dl (14.0-17.9); LYMPHOCYTES # (AUTO) 1.4 X10'3 (1.1-4.8); LYMPHOCYTES % (AUTO) 10.6 % (21-51); MEAN CORPUSCULAR HEMOGLOBIN 32.2 PG (27.0-31.0); MEAN CORPUSCULAR HGB CONC 33.6 % (33.0-36.5); MEAN PLATELET VOLUME 10.3 FL (7.4-10.4); MONOCYTES # (AUTO) 1.3 X10'3 (0-0.9); MONOCYTES % (AUTO) 9.9 % (2-12); NEUTROPHILS # (AUTO) 10.7 X10'3 (1.8-7.7); NEUTROPHILS % (AUTO) 78.9 % (42-75); PLATELET COUNT 115 X10'3 (140-440); RED BLOOD COUNT 3.02 X10'6 (4.70-6.10); RED CELL DISTRIBUTION WIDTH 14.5 % (11.5-14.5); WHITE BLOOD COUNT 13.5 X10'3 (4.5-11.0)
[2017-06-25 03:36] LABS: ANION GAP 6 (8-16); BLOOD UREA NITROGEN 35 MG/DL (7-18); BUN/CREATININE RATIO 29.7 (5.4-32.0); CALCIUM 7.7 MG/DL (8.5-10.1); CHLORIDE 105 MMOL/L (99-107); CREATININE 1.18 MG/DL (0.60-1.10); GLUCOSE 144 MG/DL (70-104); MAGNESIUM 2.5 MG/DL (1.5-2.4); POTASSIUM 4.5 MMOL/L (3.5-5.1); SODIUM 138 MMOL/L (135-145); TOTAL CARBON DIOXIDE 26.8 MMOL/L (24-32); eGFR 59 ML/MIN
[2017-06-25] MEDS: HYDROcodone/acetaminophen 10/325mg tab PO PRN (07:41)
[2017-06-25] MEDS: brimonidine 0.2% 5 ML ophthalmic drops EACHEYE SCH ×2 (08:00→20:00)
[2017-06-25] MEDS: aspirin 325mg tablet, delayed-release (Ecotrin) PO SCH (08:00)
[2017-06-25] MEDS: mupirocin 2% nasal ointment 1gm UD NS SCH (08:00)
[2017-06-25] MEDS: Protein Smoothie (high protein) 240ml (8oz) cup PO SCH ×3 (08:35→18:00)
[2017-06-25] MEDS: insulin Lispro (HumaLOG) vial - multi-dose SQ SCH ×4 (09:00→13:29)
[2017-06-25] MEDS: docusate sod 100mg capsule PO SCH ×2 (09:05→19:59)
[2017-06-25] MEDS: pantoprazole 40mg Tablet.DR PO SCH (09:06)
[2017-06-25] MEDS: atorvastatin 10mg tablet PO SCH (09:06)
[2017-06-25] MEDS: metoprolol tartrate 25mg tablet PO SCH ×2 (09:06→20:00)
[2017-06-25] MEDS ORDERED: furosemide 20 MG/2 ML vial IV ONE (09:50)
[2017-06-25] MEDS ORDERED: furosemide 40mg/4ml inj IV ONE (10:35)
[2017-06-25] MEDS: metFORMIN 500mg tablet PO SCH (17:20)
[2017-06-26 03:00] VITALS: BP 114/57
[2017-06-26 07:00] VITALS: BP 120/59
[2017-06-26] MEDS: aspirin 325mg tablet, delayed-release (Ecotrin) PO SCH (07:10)
[2017-06-26] MEDS: brimonidine 0.2% 5 ML ophthalmic drops EACHEYE SCH (07:11)
[2017-06-26] MEDS: pantoprazole 40mg Tablet.DR PO SCH (07:11)
[2017-06-26] MEDS: atorvastatin 10mg tablet PO SCH (07:11)
[2017-06-26] MEDS: metFORMIN 500mg tablet PO SCH (07:11)
[2017-06-26] MEDS: docusate sod 100mg capsule PO SCH (07:11)
[2017-06-26] MEDS: metoprolol tartrate 25mg tablet PO SCH (07:11)
[2017-06-26] MEDS ORDERED: COL100C PO (07:37)
[2017-06-26] MEDS ORDERED: METO25TA6 PO (07:37)
[2017-06-26] MEDS ORDERED: HYDR-3972 PO (07:37)
[2017-06-26] MEDS ORDERED: LISI-604 PO (07:37)
[2017-06-26] MEDS ORDERED: lisinopril 5mg tablet PO SCH (08:00)
[2017-06-26] MEDS: Protein Smoothie (high protein) 240ml (8oz) cup PO SCH (08:25)
== END 2017-06-26 11:42 | disposition home health service (06) | DRG 220 ==
LOC: EDSTATUS 12:30 → PAS IN 06-22 05:22 → EDSTATUS 06-22 07:30 → ICU 2S 06-22 12:15 → PCU 3S 06-25 14:25
PROVIDERS: ADMIT Thoracic Surgery (Cardiothoracic Vascular Surgery); ATTEND Thoracic Surgery (Cardiothoracic Vascular Surgery)
PROC: 021009W Bypass Coronary Artery, One Artery from Aorta with Autologous Venous Tissue, Open Approach (ICD-10-PCS; 2017-06-22)
PROC: 06BP4ZZ Excision of Right Saphenous Vein, Percutaneous Endoscopic Approach (ICD-10-PCS; 2017-06-22)
PROC: 02BF0ZZ Excision of Aortic Valve, Open Approach (ICD-10-PCS; 2017-06-22)
PROC: 5A1221Z Performance of Cardiac Output, Continuous (ICD-10-PCS; 2017-06-22)
PROC: B24BZZ4 Ultrasonography of Heart with Aorta, Transesophageal (ICD-10-PCS; 2017-06-22)
PROC: X2RF032 Replacement of Aortic Valve using Zooplastic Tissue, Rapid Deployment Technique, Open Approach, New Technology Group 2 (ICD-10-PCS; principal; 2017-06-22 07:20)
DX: I35.0 Nonrheumatic aortic (valve) stenosis (principal); J98.11 Atelectasis; E66.01 Morbid (severe) obesity due to excess calories; I48.91 Unspecified atrial fibrillation; E11.9 Type 2 diabetes mellitus without complications; I25.10 Atherosclerotic heart disease of native coronary artery without angina pectoris; I35.1 Nonrheumatic aortic (valve) insufficiency; I34.0 Nonrheumatic mitral (valve) insufficiency; Z96.653 Presence of artificial knee joint, bilateral; I44.0 Atrioventricular block, first degree; E78.00 Pure hypercholesterolemia, unspecified; I10 Essential (primary) hypertension; Z68.35 Body mass index [BMI] 35.0-35.9, adult; Z82.49 Family history of ischemic heart disease and other diseases of the circulatory system; Z95.3 Presence of xenogenic heart valve; Z87.891 Personal history of nicotine dependence
CPT/HCPCS: 0232T; 93312; 93325; 36415; 36600; 71045; 71046; 80048; 80053; 81003; 82330; 82435; 82803; 82947; 82948; 83036; 83735; 84100; 84132; 84295; 85018; 85025; 85347; 85384; 85610; 85730; 86885; 86900; 86901; 86920; 87070; 88300; 93005; 93880; 93971; 94002; 94010; 94668; 94760; 97110; 97116; 97161; 97530; A6213; A6222; A6257; A6258; A6402; A6449; A7000; A7048; C1713; J0690; J1644; J1815; J1940; J2001; J2060; J2250; J2270; J2405; J2440; J2704; J2720; J3370; J3475; J3480; J3490; J7030; J7060; J7120; P9045

== ENCOUNTER 2017-07-30 19:45 | Inpatient (IN) | payer MEDICARE, BC, OTHER ==
[~2017-07-30] VITALS: Ht 177.8 cm; Wt 108.0 kg
[~2017-07-30 19:45] MED LIST changes: +BRIM5DRO16 EACHEYE; +COL100C PO; +HYDR-3972 PO; -HYDR25TA4 PO; +LISI-604 PO; -LISI40TA4 PO; -METO100T14 PO; +METO25TA6 PO
[2017-07-30 20:14] LABS: BASOPHILS % (AUTO) 0.4 % (0-1); EOSINOPHILS # (AUTO) 0.4 X10'3 (0-0.9); EOSINOPHILS % (AUTO) 3.5 % (0-6); HEMATOCRIT 39.3 % (42.0-52.0); HEMOGLOBIN 12.9 g/dl (14.0-17.9); LYMPHOCYTES # (AUTO) 1.9 X10'3 (1.1-4.8); LYMPHOCYTES % (AUTO) 15.7 % (21-51); MEAN CORPUSCULAR HEMOGLOBIN 29.7 PG (27.0-31.0); MEAN CORPUSCULAR HGB CONC 32.8 % (33.0-36.5); MEAN CORPUSCULAR VOLUME 90.7 FL (78-98); MEAN PLATELET VOLUME 8.3 FL (7.4-10.4); MONOCYTES # (AUTO) 0.8 X10'3 (0-0.9); MONOCYTES % (AUTO) 6.6 % (2-12); NEUTROPHILS # (AUTO) 8.9 X10'3 (1.8-7.7); NEUTROPHILS % (AUTO) 73.8 % (42-75); PLATELET COUNT 337 X10'3 (140-440); RED BLOOD COUNT 4.34 X10'6 (4.70-6.10); RED CELL DISTRIBUTION WIDTH 15.1 % (11.5-14.5)
[2017-07-30] MEDS ORDERED: ACET-2319 PO (20:14)
[2017-07-30] MEDS ORDERED: AMIO200T57 PO (20:14)
[2017-07-30] MEDS ORDERED: FURO40TA4 PO (20:14)
[2017-07-30] MEDS ORDERED: ROSU10TA PO (20:14)
[2017-07-30] MEDS ORDERED: POTA10CA44 PO (20:14)
[2017-07-30 20:24] LABS: INR 1.1 INR; PARTIAL THROMBOPLASTIN TIME 25 SECONDS (22-32); PROTHROMBIN TIME 11.3 SECONDS (9.0-12.0)
[2017-07-30 20:27] LABS: ALANINE AMINOTRANSFERASE 32 U/L (12-78); ALBUMIN 3.6 G/DL (3.4-5.0); ALBUMIN/GLOBULIN RATIO 0.9 (1.1-1.5); ALKALINE PHOSPHATASE 107 IU/L (46-116); ANION GAP 11 (8-16); ASPARTATE AMINO TRANSFERASE 22 U/L (10-37); BILIRUBIN,TOTAL 0.4 MG/DL (0.1-1.0); BLOOD UREA NITROGEN 32 MG/DL (7-18); BUN/CREATININE RATIO 20.1 (5.4-32.0); CALCIUM 9.2 MG/DL (8.5-10.1); CHLORIDE 99 MMOL/L (99-107); CREATININE 1.59 MG/DL (0.60-1.10); GLUCOSE 173 MG/DL (70-104); POTASSIUM 4.1 MMOL/L (3.5-5.1); SODIUM 140 MMOL/L (135-145); TOTAL CARBON DIOXIDE 29.6 MMOL/L (24-32); TOTAL PROTEIN 7.7 G/DL (6.4-8.2); eGFR 41 ML/MIN
[2017-07-30 20:30] LABS: TROPONIN I < 0.04 NG/ML (0.0-0.05)
[2017-07-31] MEDS ORDERED: acetaminophen 325mg tablet PO PRN (00:15)
[2017-07-31] MEDS ORDERED: magnesium hydroxide 30ml (MOM) UD suspension PO PRN (00:15)
[2017-07-31 01:10] LABS: ALANINE AMINOTRANSFERASE 29 U/L (12-78); ALBUMIN 3.2 G/DL (3.4-5.0); ALBUMIN/GLOBULIN RATIO 0.8 (1.1-1.5); ALKALINE PHOSPHATASE 98 IU/L (46-116); ASPARTATE AMINO TRANSFERASE 20 U/L (10-37); BILIRUBIN,DIRECT 0.1 MG/DL (0-0.3); BILIRUBIN,TOTAL 0.3 MG/DL (0.1-1.0); TOTAL PROTEIN 7.1 G/DL (6.4-8.2)
[2017-07-31 01:30] VITALS: BP_SYST 186; BP_SYST 206; BP_DIAS 75; BP_DIAS 86
[2017-07-31] MEDS ORDERED: insulin Lispro (HumaLOG) vial - multi-dose SQ SCH (01:50)
[2017-07-31] MEDS ORDERED: glucagon, human recombinant 1mg kit SUBCUT PRN (01:50)
[2017-07-31] MEDS ORDERED: MESSAGE TO PHARMACY PO ONE (01:50)
[2017-07-31] MEDS ORDERED: dextrose ORAL solution 15 GM/59 ML bottle PO PRN ×2 (01:50)
[2017-07-31] MEDS ORDERED: dextrose 50%-water 50ml dispensing syringe IV PRN ×2 (01:50)
[2017-07-31] MEDS ORDERED: COU2.5T PO (02:53)
[2017-07-31 06:00] VITALS: BP 163/72
[2017-07-31 06:39] LABS: CHOL/HDL RATIO 2.3 (0.00-4.99); CHOLESTEROL 82 MG/DL (0-200); HDL CHOLESTEROL 36 MG/DL (35-60); LDL CHOLESTEROL 37 MG/DL (50-100); TRIGLYCERIDES 59 MG/DL (20-135)
[2017-07-31] MEDS: atorvastatin 20mg tablet PO SCH (07:28)
[2017-07-31] MEDS: docusate sod 100mg capsule PO SCH ×2 (07:28→19:59)
[2017-07-31] MEDS: amiodarone 200mg tablet PO SCH ×2 (07:28→19:59)
[2017-07-31] MEDS: potassium Cl 20 mEq SR tablet PO SCH (07:28)
[2017-07-31] MEDS: aspirin 81mg tablet.DR PO SCH (07:28)
[2017-07-31] MEDS: furosemide 40mg tablet PO SCH (07:28)
[2017-07-31] MEDS: lisinopril 5mg tablet PO SCH (07:28)
[2017-07-31] MEDS: metoprolol tartrate 25mg tablet PO SCH ×2 (07:28→19:59)
[2017-07-31] MEDS ORDERED: enoxaparin 100mg/ml syringe SUBCUT ONE (08:00)
[2017-07-31 10:00] VITALS: BP 162/75
[2017-07-31] MEDS ORDERED: LORazepam 2 mg/ml vial IV ONE (10:20)
[2017-07-31 10:44] LABS: INR 1.1 INR; PROTHROMBIN TIME 11.6 SECONDS (9.0-12.0)
[2017-07-31] MEDS: brimonidine 0.2% 5 ML ophthalmic drops EACHEYE SCH ×2 (10:50→20:00)
[2017-07-31 18:00] VITALS: BP 144/68
[2017-07-31] MEDS ORDERED: rivaroxaban 10mg tablet PO SCH (20:00)
[2017-07-31] MEDS ORDERED: non-formulary drug (Acetaminophen/Dp-Hydram Hcl (Tylenol Pm) 2 TAB) PO SCH (21:00)
[2017-07-31] MEDS ORDERED: insulin glargine (Lantus) pen - multi-dose SQ SCH (21:00)
[2017-07-31] MEDS ORDERED: diphenhydrAMINE 25mg capsule PO SCH (21:00)
[2017-07-31] MEDS ORDERED: acetaminophen 325mg tablet PO SCH (21:00)
[2017-07-31 22:00] VITALS: BP 125/65
[2017-08-01 02:00] VITALS: BP 113/60
[2017-08-01 06:23] LABS: BASOPHILS # (AUTO) 0.1 X10'3 (0-0.2); BASOPHILS % (AUTO) 0.8 % (0-1); EOSINOPHILS # (AUTO) 0.3 X10'3 (0-0.9); EOSINOPHILS % (AUTO) 4.3 % (0-6); HEMATOCRIT 34.1 % (42.0-52.0); HEMOGLOBIN 11.4 g/dl (14.0-17.9); LYMPHOCYTES # (AUTO) 1.4 X10'3 (1.1-4.8); LYMPHOCYTES % (AUTO) 16.8 % (21-51); MEAN CORPUSCULAR HGB CONC 33.5 % (33.0-36.5); MEAN CORPUSCULAR VOLUME 89.3 FL (78-98); MEAN PLATELET VOLUME 9.1 FL (7.4-10.4); MONOCYTES # (AUTO) 0.6 X10'3 (0-0.9); MONOCYTES % (AUTO) 7.9 % (2-12); NEUTROPHILS # (AUTO) 5.8 X10'3 (1.8-7.7); NEUTROPHILS % (AUTO) 70.2 % (42-75); PLATELET COUNT 258 X10'3 (140-440); RED BLOOD COUNT 3.82 X10'6 (4.70-6.10); RED CELL DISTRIBUTION WIDTH 14.8 % (11.5-14.5); WHITE BLOOD COUNT 8.2 X10'3 (4.5-11.0)
[2017-08-01 06:40] LABS: INR 1.3 INR; PARTIAL THROMBOPLASTIN TIME 32 SECONDS (22-32); PROTHROMBIN TIME 13.3 SECONDS (9.0-12.0)
[2017-08-01 07:10] LABS: ALANINE AMINOTRANSFERASE 25 U/L (12-78); ALBUMIN/GLOBULIN RATIO 0.9 (1.1-1.5); ALKALINE PHOSPHATASE 87 IU/L (46-116); ANION GAP 8 (8-16); ASPARTATE AMINO TRANSFERASE 20 U/L (10-37); BILIRUBIN,TOTAL 0.4 MG/DL (0.1-1.0); BLOOD UREA NITROGEN 26 MG/DL (7-18); BUN/CREATININE RATIO 19.8 (5.4-32.0); CALCIUM 8.8 MG/DL (8.5-10.1); CHLORIDE 103 MMOL/L (99-107); CREATININE 1.31 MG/DL (0.60-1.10); GLUCOSE 121 MG/DL (70-104); SODIUM 140 MMOL/L (135-145); TOTAL CARBON DIOXIDE 28.7 MMOL/L (24-32); TOTAL PROTEIN 6.4 G/DL (6.4-8.2); eGFR 52 ML/MIN
[2017-08-01 08:00] VITALS: BP 132/67
[2017-08-01] MEDS: amiodarone 200mg tablet PO SCH (08:22)
[2017-08-01] MEDS: brimonidine 0.2% 5 ML ophthalmic drops EACHEYE SCH (08:22)
[2017-08-01] MEDS: docusate sod 100mg capsule PO SCH (08:22)
[2017-08-01] MEDS: aspirin 81mg tablet.DR PO SCH (08:22)
[2017-08-01] MEDS: metoprolol tartrate 25mg tablet PO SCH (08:23)
[2017-08-01] MEDS: potassium Cl 20 mEq SR tablet PO SCH (08:23)
[2017-08-01] MEDS: atorvastatin 20mg tablet PO SCH (08:23)
[2017-08-01] MEDS: furosemide 40mg tablet PO SCH (08:23)
[2017-08-01] MEDS: lisinopril 5mg tablet PO SCH (08:23)
[2017-08-01] MEDS ORDERED: RIVA10TA PO (09:40)
[2017-08-01 12:00] VITALS: BP 117/59
== END 2017-08-01 13:35 | disposition home health service (06) | DRG 65 ==
LOC: ER 19:45 → ED HOLD 07-31 00:13 → ORTHO 4S 07-31 01:32
PROVIDERS: ADMIT Emergency Medicine; ATTEND Internal Medicine
DX: I63.40 Cerebral infarction due to embolism of unspecified cerebral artery (principal); N17.9 Acute kidney failure, unspecified; I13.0 Hypertensive heart and chronic kidney disease with heart failure and stage 1 through stage 4 chronic kidney disease, or unspecified chronic kidney disease; N18.3 Chronic kidney disease, stage 3 (moderate); I25.10 Atherosclerotic heart disease of native coronary artery without angina pectoris; I44.7 Left bundle-branch block, unspecified; I48.0 Paroxysmal atrial fibrillation; R47.01 Aphasia; R79.1 Abnormal coagulation profile; E11.22 Type 2 diabetes mellitus with diabetic chronic kidney disease; E78.00 Pure hypercholesterolemia, unspecified; R47.1 Dysarthria and anarthria; E78.5 Hyperlipidemia, unspecified; I65.23 Occlusion and stenosis of bilateral carotid arteries; I50.9 Heart failure, unspecified; Z95.1 Presence of aortocoronary bypass graft; Z95.3 Presence of xenogenic heart valve; Z79.01 Long term (current) use of anticoagulants; Z79.84 Long term (current) use of oral hypoglycemic drugs; Z79.82 Long term (current) use of aspirin
CPT/HCPCS: 36415; 70450; 70544; 70551; 71045; 80053; 80061; 80076; 82948; 83036; 84439; 84443; 84484; 85025; 85610; 85651; 85730; 87070; 93306; 93880; 97162; 97530; 99291; A6213; J1650; J1815; J2060; J7030

== ENCOUNTER 2018-05-03 22:27 | Emergency (ER) | payer MEDICARE, BC, OTHER ==
[~2018-05-03] VITALS: Ht 177.8 cm; Wt 108.2 kg
[~2018-05-03 22:27] MED LIST changes: +ACET-2319 PO; +AMIO200T54 PO; +FURO40TA4 PO; -HYDR-3972 PO; +POTA10CA44 PO; +RIVA10TA PO; +ROSU10TA2 PO; -SIMV40TA4 PO
[2018-05-03] MEDS ORDERED: normal saline 1000ml 1,000 ML IV ONE (22:49)
[2018-05-03 23:06] LABS: BASOPHILS # (AUTO) 0.1 X10'3 (0-0.2); BASOPHILS % (AUTO) 1.3 % (0-1); EOSINOPHILS # (AUTO) 0.4 X10'3 (0-0.9); EOSINOPHILS % (AUTO) 4.2 % (0-6); HEMATOCRIT 40.9 % (42.0-52.0); HEMOGLOBIN 13.7 g/dl (14.0-17.9); LYMPHOCYTES % (AUTO) 19.6 % (21-51); MEAN CORPUSCULAR HEMOGLOBIN 31.4 PG (27.0-31.0); MEAN CORPUSCULAR HGB CONC 33.5 g/dL (33.0-36.5); MEAN PLATELET VOLUME 9.4 FL (7.4-10.4); MONOCYTES # (AUTO) 0.7 X10'3 (0-0.9); MONOCYTES % (AUTO) 7.2 % (2-12); NEUTROPHILS # (AUTO) 6.8 X10'3 (1.8-7.7); NEUTROPHILS % (AUTO) 67.7 % (42-75); PLATELET COUNT 196 X10'3 (140-440); RED BLOOD COUNT 4.35 X10'6 (4.70-6.10); RED CELL DISTRIBUTION WIDTH 13.2 % (11.5-14.5)
[2018-05-03 23:10] LABS: INR 1.7 INR; PARTIAL THROMBOPLASTIN TIME 30 SECONDS (22-32)
[2018-05-03 23:11] LABS: ALANINE AMINOTRANSFERASE 20 U/L (12-78); ALBUMIN 3.3 G/DL (3.4-5.0); ALBUMIN/GLOBULIN RATIO 1.1 (1.1-1.5); ALKALINE PHOSPHATASE 49 IU/L (46-116); ANION GAP 12 (8-16); ASPARTATE AMINO TRANSFERASE 20 U/L (10-37); BILIRUBIN,TOTAL 0.4 MG/DL (0.1-1.0); BLOOD UREA NITROGEN 22 MG/DL (7-18); BUN/CREATININE RATIO 18.2 (5.4-32.0); CALCIUM 8.3 MG/DL (8.5-10.1); CHLORIDE 107 MMOL/L (99-107); CREATININE 1.21 MG/DL (0.60-1.10); GLUCOSE 182 MG/DL (70-104); POTASSIUM 3.3 MMOL/L (3.5-5.1); SODIUM 143 MMOL/L (135-145); TOTAL CARBON DIOXIDE 24.4 MMOL/L (24-32); TOTAL PROTEIN 6.4 G/DL (6.4-8.2); eGFR 57 ML/MIN
[2018-05-03 23:19] LABS: MAGNESIUM 1.6 MG/DL (1.5-2.4)
--- NOTE | 2018-05-03 23:28 | NUR ---
ABLE TO STAND AT BEDSIDE AND VOIDED CLEAR YELLOW URINE ON URINAL. TOLERATED WELL.
[2018-05-03 23:43] LABS: CLARITY,URINE SLIGHTLY CLOUDY (Clear); COLOR,URINE YELLOW (Yellow); GLUCOSE, URINE 250 mg/dl (Neg); KETONES,URINE 15 mg/dl (Neg); LEUKOCYTE ESTERASE ,URINE TRACE (Neg); NITRITES, URINE POSITIVE (Neg); OCCULT BLOOD,URINE TRACE-INTACT (Neg); PH,URINE 6.5 (4.8-8.0); PROTEIN,URINE TRACE mg/dl (Neg)
[2018-05-03 23:49] LABS: UA COLLECTION TYPE CLN CATCH MIDSTREAM
[2018-05-03 23:50] LABS: BACTERIA,URINE 4+ /HPF (Neg); RBC,URINE 0-2 /HPF (0-2); SQUAMOUS EPITHELIAL CELL,UR FEW /LPF (FEW); WBC,URINE 0-4 /HPF (0-4)
--- NOTE | 2018-05-04 01:15 | NUR ---
dr. remy at bedside talking with pt and family
[2018-05-04] MEDS ORDERED: magnesium 2GM in 50ml NS 50 ML IV ONE (01:20)
[2018-05-04] MEDS ORDERED: potassium 10mEq/100ml NS w/LIDOcaine (10mg/bag) IV ONE (01:20)
[2018-05-04] MEDS ORDERED: ONDA4TAB6 PO (02:22)
[2018-05-04] MEDS ORDERED: MAGN200T8 PO (02:24)
[2018-05-04] MEDS ORDERED: ondansetron/PF 4mg/2ml inj IV ONE (02:25)
[2018-05-04 02:51] VITALS: BP 142/96
== END 2018-05-04 04:00 | disposition home or self-care (01) ==
LOC: ER 22:27
DX: K29.00 Acute gastritis without bleeding (principal); E87.6 Hypokalemia; E83.42 Hypomagnesemia; I25.10 Atherosclerotic heart disease of native coronary artery without angina pectoris; I11.0 Hypertensive heart disease with heart failure; I50.9 Heart failure, unspecified; E78.00 Pure hypercholesterolemia, unspecified; Z95.1 Presence of aortocoronary bypass graft; Z79.82 Long term (current) use of aspirin
CPT/HCPCS: 36415; 71045; 80053; 81001; 83735; 83880; 84484; 85025; 85610; 85730; 87077; 87088; 87186; 93005; 96361; 96365; 96368; 96375; 99284; J2405; J3475; J3480; J7030